=== PATIENT | male | born 1990 | race Caucasian/White ===

== ENCOUNTER 2018-06-10 08:24 | Emergency (ER) | payer OTHER ==
[~2018-06-10] VITALS: Ht 165.1 cm; Wt 108.9 kg
[~2018-06-10 08:24] MED LIST: ACYC400T PO; FAMO20CT PO; MAGN400T7 PO; PRED10TA6 PO; PROG1 PO; TAMS0.4C97 PO; [UNRECOGNIZED DRUG - CODE] PO; [UNRECOGNIZED DRUG - CODE] PO
[2018-06-10 08:30] VITALS: BP 145/81
--- NOTE | 2018-06-10 08:30 | NUR ---
Patient ambulated to bed 11. RN evaluating patient at bedside.
--- NOTE | 2018-06-10 08:48 | NUR ---
PT SEEN BY CLAUDE SEYMOUR.
--- NOTE | 2018-06-10 08:48 | NUR ---
Dr. Mazariegos evaluating patient at bedside.
--- NOTE | 2018-06-10 08:50 | NUR ---
PATIENT PRESENTS TO ED WITH SORE THROAT 10/24 WHEN SWALLOWING, VOMITING, DIARRHEA X1 DAY .SKIN IS PINK/WARM/DRY; AAOX4 WITH EVEN AND STEADY GAIT; LUNGS CLEAR BL; HR EVEN AND REGULAR; PT DENIES ANY FEVER,SOB,COUGH AT THIS TIME; VSS; PATIENT POSITIONED FOR COMFORT; HOB ELEVATED; BEDRAILS UP X1; BED DOWN. ER MD MADE AWARE OF PT STATUS.
[2018-06-10] MEDS ORDERED: DEXAMETHASONE 10 MG/ML VIAL IM ONE (09:00)
[2018-06-10 09:19] VITALS: BP 144/84
--- NOTE | 2018-06-10 09:19 | NUR ---
Patient discharged with v/s stable. Written and verbal after care instructions given and explained. Patient alert, oriented and verbalized understanding of instructions. Ambulatory with steady gait. All questions addressed prior to discharge. ID band removed. Patient advised to follow up with PMD. Rx of ZOFRAN, PENICILLIN given. Patient educated on indication of medication including possible reaction and side effects. Opportunity to ask questions provided and answered.
== END 2018-06-10 09:19 | disposition home or self-care (01) ==
LOC: MED 08:24
DX: J02.9 Acute pharyngitis, unspecified (principal); I10 Essential (primary) hypertension; Z79.899 Other long term (current) drug therapy; Z94.0 Kidney transplant status
CPT/HCPCS: 96372; 99283; J1100

== ENCOUNTER 2023-05-13 21:37 | Emergency (ER) | payer OTHER ==
[~2023-05-13] VITALS: Ht 165.1 cm; Wt 93.9 kg
[~2023-05-13 21:37] MED LIST changes: -ACYC400T PO; +AMLO-3 PO; +CEL250 PO; -FAMO20CT PO; +FURO-570 PO; -MAGN400T7 PO; -PRED10TA6 PO; +PRED5TAB8 PO; -PROG1 PO; -TAMS0.4C97 PO; -[UNRECOGNIZED DRUG - CODE] PO; -[UNRECOGNIZED DRUG - CODE] PO
[2023-05-13 22:32] VITALS: BP 143/71; PULSE 91; RESP 16; TEMP 99.3; O2SAT 97
[2023-05-13 22:54] LABS: FLU A ANTIGEN negative (NEGATIVE); FLU B ANTIGEN NEGATIVE (NEGATIVE)
[2023-05-15] MEDS ORDERED: METR-435 PO (01:18)
== END 2023-05-14 01:27 | disposition left against medical advice (07) ==
LOC: MED 21:37
DX: R50.9 Fever, unspecified (principal); Z20.822 Contact with and (suspected) exposure to COVID-19; Z53.21 Procedure and treatment not carried out due to patient leaving prior to being seen by health care provider
CPT/HCPCS: 99281

== ENCOUNTER 2023-05-14 17:28 | Emergency (ER) | payer OTHER ==
[~2023-05-14] VITALS: Ht 165.1 cm; Wt 93.9 kg
[2023-05-14 17:33] VITALS: BP 126/57; PULSE 84; RESP 18; TEMP 98.5; O2SAT 98
[2023-05-14 19:17] LABS: BASOPHILS % (AUTO) 0.5 % (0.0-2.0); EOSINOPHILS # (AUTO) 0.3 K/uL (0-0.4); EOSINOPHILS % (AUTO) 4.8 % (0.0-4.0); HEMATOCRIT 20.6 % (36-52); LYMPHOCYTES # (AUTO) 0.8 K/uL (2.0-11.5); LYMPHOCYTES % (AUTO) 12.5 % (20.5-51.1); MEAN CORPUSCULAR HEMOGLOBIN 28 pg (27-31); MEAN CORPUSCULAR HGB CONC 34 g/dL (33-37); MEAN CORPUSCULAR VOLUME 84.2 fL (80-94); MONOCYTES # (AUTO) 0.6 K/uL (0.8-1.0); MONOCYTES % (AUTO) 9.8 % (1.7-9.3); NEUTROPHILS # (AUTO) 4.7 K/uL (1.8-7.7); NEUTROPHILS % (AUTO) 72.4 % (42.2-75.2); PLATELET COUNT (AUTO) 135 K/uL (140-450); RED BLOOD CELL COUNT(AUTO) 2.45 MIL/uL (4.20-6.10); RED CELL DISTRIBUTION WIDTH 13.7 % (11.6-13.7); WHITE BLOOD COUNT (AUTO) 6.6 K/uL (4.8-10.8)
[2023-05-14 19:21] LABS: HEMOGLOBIN 6.9 g/dL (12.0-18.0)
[2023-05-14 19:25] LABS: ANION GAP 24.7 (8-16); CALCIUM 9.5 mg/dL (8.5-10.1); CARBON DIOXIDE 19.9 mmol/L (21-32); POTASSIUM 4.6 mmol/L (3.5-5.1)
[2023-05-14 19:30] LABS: BILIRUBIN,DIRECT 0.2 mg/dL (0.0-0.3); TOTAL BILIRUBIN 0.4 mg/dL (0.0-1.0)
[2023-05-14 19:33] LABS: CREATININE 20.3 mg/dL (0.6-1.3)
[2023-05-15] MEDS: metroNIDAZOLE 500 MG/NS PREMIX 100 ML IV ONE (00:04)
[2023-05-15] MEDS ORDERED: METR-435 PO (01:18)
[2023-05-15 01:25] VITALS: BP 114/75; PULSE 75; RESP 18; TEMP 98.5; O2SAT 98
== END 2023-05-15 01:25 | disposition home or self-care (01) ==
LOC: MED 17:28
DX: R50.9 Fever, unspecified (principal); D64.9 Anemia, unspecified; I12.9 Hypertensive chronic kidney disease with stage 1 through stage 4 chronic kidney disease, or unspecified chronic kidney disease; N18.6 End stage renal disease; Z99.2 Dependence on renal dialysis; Z79.899 Other long term (current) drug therapy
CPT/HCPCS: 36415; 36430; 80048; 80076; 83690; 85025; 86886; 86900; 86901; 86920; 87040; 96365; 99285; J3490; P9016

== ENCOUNTER 2023-05-21 12:36 | Emergency (ER) | payer OTHER ==
[~2023-05-21] VITALS: Ht 165.1 cm; Wt 95.3 kg
[~2023-05-21 12:36] MED LIST changes: +METR-435 PO
[2023-05-21 13:01] VITALS: BP 124/86; PULSE 74; RESP 19; TEMP 98.3; O2SAT 100
[2023-05-21 13:47] LABS: BASOPHILS # (AUTO) 0.1 K/uL (0.00-0.22); BASOPHILS % (AUTO) 0.9 % (0.0-2.0); EOSINOPHILS # (AUTO) 0.6 K/uL (0-0.4); EOSINOPHILS % (AUTO) 9.6 % (0.0-4.0); HEMOGLOBIN 8.8 g/dL (12.0-18.0); LYMPHOCYTES # (AUTO) 0.8 K/uL (2.0-11.5); LYMPHOCYTES % (AUTO) 14.1 % (20.5-51.1); MEAN CORPUSCULAR HEMOGLOBIN 28 pg (27-31); MEAN CORPUSCULAR HGB CONC 34 g/dL (33-37); MEAN CORPUSCULAR VOLUME 83.3 fL (80-94); MONOCYTES # (AUTO) 0.7 K/uL (0.8-1.0); MONOCYTES % (AUTO) 11.9 % (1.7-9.3); NEUTROPHILS # (AUTO) 3.7 K/uL (1.8-7.7); NEUTROPHILS % (AUTO) 63.5 % (42.2-75.2); PLATELET COUNT (AUTO) 166 K/uL (140-450); RED BLOOD CELL COUNT(AUTO) 3.13 MIL/uL (4.20-6.10); RED CELL DISTRIBUTION WIDTH 13.6 % (11.6-13.7); WHITE BLOOD COUNT (AUTO) 5.8 K/uL (4.8-10.8)
[2023-05-21 14:14] LABS: ANION GAP 18.4 (8-16); CALCIUM 9.9 mg/dL (8.5-10.1); CARBON DIOXIDE 24.6 mmol/L (21-32)
[2023-05-21 14:19] LABS: CREATININE 19.3 mg/dL (0.6-1.3)
[2023-05-21] MEDS ORDERED: ZOLP5TAB1 PO (14:41)
[2023-05-21 14:58] VITALS: BP 122/78; PULSE 76; RESP 16; TEMP 98.2; O2SAT 99
== END 2023-05-21 14:58 | disposition home or self-care (01) ==
LOC: MED 12:36
DX: R53.83 Other fatigue (principal); G47.00 Insomnia, unspecified; D64.9 Anemia, unspecified; R79.89 Other specified abnormal findings of blood chemistry; E87.1 Hypo-osmolality and hyponatremia; G25.81 Restless legs syndrome; I12.0 Hypertensive chronic kidney disease with stage 5 chronic kidney disease or end stage renal disease; N18.6 End stage renal disease; Z99.2 Dependence on renal dialysis
CPT/HCPCS: 36415; 80048; 85025; 86886; 86900; 86901; 93005; 99284

== ENCOUNTER 2023-06-13 09:27 | Inpatient (IN) | payer OTHER ==
[2023-06-13] VITALS (7 sets, daily range): BP systolic 112–135; BP diastolic 74–88; PULSE 55–83; RESP 16–18; TEMP 97.3–98.8; O2SAT 98–100
[~2023-06-13] VITALS: Ht 165.1 cm; Wt 94.3 kg
[~2023-06-13 09:27] MED LIST changes: +ZOLP5TAB1 PO
[2023-06-13] MEDS ORDERED: GABA-636 PO (10:26)
[2023-06-13] MEDS ORDERED: AMLO10TA88 PO (10:26)
[2023-06-13] MEDS ORDERED: ATEN50TA2 PO (10:26)
[2023-06-13 10:42] LABS: BASOPHILS % (AUTO) 0.7 % (0.0-2.0); EOSINOPHILS # (AUTO) 0.2 K/uL (0-0.4); EOSINOPHILS % (AUTO) 3.6 % (0.0-4.0); HEMATOCRIT 21.1 % (36-52); LYMPHOCYTES # (AUTO) 0.7 K/uL (2.0-11.5); LYMPHOCYTES % (AUTO) 11.5 % (20.5-51.1); MEAN CORPUSCULAR HEMOGLOBIN 28 pg (27-31); MEAN CORPUSCULAR HGB CONC 32 g/dL (33-37); MEAN CORPUSCULAR VOLUME 86.5 fL (80-94); MONOCYTES # (AUTO) 0.8 K/uL (0.8-1.0); MONOCYTES % (AUTO) 12.9 % (1.7-9.3); NEUTROPHILS # (AUTO) 4.6 K/uL (1.8-7.7); NEUTROPHILS % (AUTO) 71.3 % (42.2-75.2); PLATELET COUNT (AUTO) 137 K/uL (140-450); RED BLOOD CELL COUNT(AUTO) 2.44 MIL/uL (4.20-6.10); RED CELL DISTRIBUTION WIDTH 15.5 % (11.6-13.7); WHITE BLOOD COUNT (AUTO) 6.4 K/uL (4.8-10.8)
[2023-06-13 10:58] LABS: ANION GAP 21.3 (8-16); CALCIUM 7.4 mg/dL (8.5-10.1); CARBON DIOXIDE 25.4 mmol/L (21-32); POTASSIUM 5.7 mmol/L (3.5-5.1)
[2023-06-13 11:06] LABS: HEMOGLOBIN 6.8 g/dL (12.0-18.0); INR 1.03 (0.8-1.2); PROTHROMBIN TIME 10.8 secs (10.8-13.4)
[2023-06-13] MEDS: PANTOPRAZOLE 40 MG INJ VIAL IVP ONE (11:28)
[2023-06-13] MEDS: BOWEL EVACUANT DRINK 4,000 ML PDS PO ONE (15:31)
[2023-06-13] MEDS ORDERED: SODIUM PHOSPHATE 118 ML ENEM RC SCH (22:25)
[2023-06-14] VITALS (9 sets, daily range): BP systolic 94–139; BP diastolic 50–82; PULSE 52–91; RESP 16–18; TEMP 97.2–98.6; O2SAT 90–100
[2023-06-14] MEDS: GABAPENTIN 100 MG CAP PO SCH (08:07)
[2023-06-14] MEDS: atenoloL 50 MG TAB PO SCH (08:07)
[2023-06-14] MEDS: amLODIPine 5 MG TAB PO SCH (08:07)
[2023-06-14] MEDS: diphenhydrAMINE 50 MG/ML VIAL ONE (09:28)
[2023-06-14] MEDS: MIDAZOLAM 5 MG/5 ML VIAL ONE (09:29)
[2023-06-14] MEDS: fentaNYL citrate 0.05 MG/ML VIAL ONE (09:29)
[2023-06-14] MEDS: MIDAZOLAM 5 MG/5 ML VIAL IV ONE (10:10)
[2023-06-14] MEDS: fentaNYL citrate 0.05 MG/ML VIAL IVP ONE (10:11)
[2023-06-14 10:14] LABS: ANION GAP 19.9 (8-16); CALCIUM 7.3 mg/dL (8.5-10.1); CARBON DIOXIDE 27.9 mmol/L (21-32); POTASSIUM 4.8 mmol/L (3.5-5.1)
[2023-06-14 10:24] LABS: CREATININE 18.7 mg/dL (0.6-1.3)
[2023-06-14 11:03] LABS: HEMATOCRIT 22.5 % (36-52); HEMOGLOBIN 7.5 g/dL (12.0-18.0)
[2023-06-14] MEDS ORDERED: EPOETIN ALFA 4,000 UNITS/ML VIAL SUBQ SCH (18:15)
[2023-06-14] MEDS ORDERED: METR-520 PO (18:33)
[2023-06-14] MEDS ORDERED: CIPR500T4 PO (18:33)
[2023-06-14] MEDS ORDERED: HYD2.5O TP (18:33)
[2023-06-14] MEDS: EPOETIN ALFA-EPBX 10,000 UNITS/ML VIAL SUBQ ONE (18:37)
[2023-06-14] MEDS ORDERED: MEDS-TO-BEDS MC SCH (21:00)
== END 2023-06-14 18:50 | disposition home or self-care (01) | DRG 254 ==
LOC: MED 09:27 → MTU 17:06
PROVIDERS: ADMIT Hospitalist; ATTEND Hospitalist
PROC: 0DBN8ZX Excision of Sigmoid Colon, Via Natural or Artificial Opening Endoscopic, Diagnostic (ICD-10-PCS; principal; 2023-06-13)
PROC: 30233N1 Transfusion of Nonautologous Red Blood Cells into Peripheral Vein, Percutaneous Approach (ICD-10-PCS; 2023-06-13)
PROC: 3E1M39Z Irrigation of Peritoneal Cavity using Dialysate, Percutaneous Approach (ICD-10-PCS; 2023-06-13)
PROC: 3E1M39Z Irrigation of Peritoneal Cavity using Dialysate, Percutaneous Approach (ICD-10-PCS; 2023-06-14)
DX: K64.4 Residual hemorrhoidal skin tags (principal); D69.6 Thrombocytopenia, unspecified; D62 Acute posthemorrhagic anemia; I12.0 Hypertensive chronic kidney disease with stage 5 chronic kidney disease or end stage renal disease; E87.1 Hypo-osmolality and hyponatremia; E83.51 Hypocalcemia; N18.6 End stage renal disease; K52.9 Noninfective gastroenteritis and colitis, unspecified; E87.5 Hyperkalemia; Z79.899 Other long term (current) drug therapy
CPT/HCPCS: 36415; 36430; 80048; 84484; 85018; 85025; 85610; 85730; 86886; 86900; 86901; 86920; 87081; 88305; 93005; 99291; C9113; J1200; J2250; J3010; P9016; Q5106

== ENCOUNTER 2023-07-14 10:26 | Observation (INO) | payer OTHER ==
[2023-07-14] VITALS (7 sets, daily range): BP systolic 116–137; BP diastolic 49–75; PULSE 100–121; RESP 18–35; TEMP 98.5–99; O2SAT 98–99
[~2023-07-14] VITALS: Ht 165.1 cm; Wt 96.6 kg
[~2023-07-14 10:26] MED LIST changes: +AMLO10TA88 PO; +ATEN50TA2 PO; -CEL250 PO; +CIPR500T4 PO; -FURO-570 PO; +GABA-636 PO; +HYD2.5O TP; -METR-435 PO; +METR-520 PO; -PRED5TAB8 PO; -ZOLP5TAB1 PO
[2023-07-14 11:23] LABS: BASOPHILS % (AUTO) 0.1 % (0.0-2.0); EOSINOPHILS % (AUTO) 0.3 % (0.0-4.0); HEMATOCRIT 21.1 % (36-52); LYMPHOCYTES # (AUTO) 0.6 K/uL (2.0-11.5); MEAN CORPUSCULAR HEMOGLOBIN 29 pg (27-31); MEAN CORPUSCULAR HGB CONC 32 g/dL (33-37); MONOCYTES # (AUTO) 0.8 K/uL (0.8-1.0); MONOCYTES % (AUTO) 8.1 % (1.7-9.3); NEUTROPHILS # (AUTO) 8.9 K/uL (1.8-7.7); NEUTROPHILS % (AUTO) 85.5 % (42.2-75.2); PLATELET COUNT (AUTO) 119 K/uL (140-450); RED BLOOD CELL COUNT(AUTO) 2.37 MIL/uL (4.20-6.10); RED CELL DISTRIBUTION WIDTH 21.7 % (11.6-13.7); WHITE BLOOD COUNT (AUTO) 10.4 K/uL (4.8-10.8)
[2023-07-14 11:33] LABS: ANION GAP 18.9 (8-16); CARBON DIOXIDE 24.9 mmol/L (21-32); POTASSIUM 4.8 mmol/L (3.5-5.1)
[2023-07-14 11:37] LABS: INR 0.96 (0.8-1.2); PARTIAL THROMBOPLASTIN TIME 19.6 secs (22-35.6); PROTHROMBIN TIME 10.1 secs (10.8-13.4)
[2023-07-14 11:42] LABS: ALANINE AMINOTRANSFERASE 30 U/L (12-78); ALBUMIN 2.5 g/dL (3.4-5.0); ALKALINE PHOSPHATASE 253 U/L (50-136); ASPARTATE AMINOTRANSFERASE 17 U/L (15-37); BILIRUBIN,DIRECT 0.2 mg/dL (0.0-0.3); TOTAL BILIRUBIN 0.5 mg/dL (0.0-1.0)
[2023-07-14 12:02] LABS: HEMOGLOBIN 6.8 g/dL (12.0-18.0)
[2023-07-14] MEDS ORDERED: ACETAMINOPHEN 325 MG TAB PO ONE (14:00)
[2023-07-14] MEDS: ACETAMINOPHEN EXTRA STRENGTH 500 MG TAB PO ONE (14:05)
[2023-07-14] MEDS ORDERED: ONDANSETRON 4 MG/2 ML VIAL IVP PRN (14:30)
[2023-07-14] MEDS ORDERED: cefTRIAXone 1,000 MG VIAL ONE (14:49)
[2023-07-14 20:59] LABS: BASOPHILS % (AUTO) 0.2 % (0.0-2.0); EOSINOPHILS % (AUTO) 0.1 % (0.0-4.0); HEMATOCRIT 23.4 % (36-52); HEMOGLOBIN 7.8 g/dL (12.0-18.0); LYMPHOCYTES # (AUTO) 0.7 K/uL (2.0-11.5); LYMPHOCYTES % (AUTO) 8.5 % (20.5-51.1); MEAN CORPUSCULAR HEMOGLOBIN 29 pg (27-31); MEAN CORPUSCULAR HGB CONC 33 g/dL (33-37); MEAN CORPUSCULAR VOLUME 87.2 fL (80-94); MONOCYTES # (AUTO) 1.1 K/uL (0.8-1.0); MONOCYTES % (AUTO) 12.3 % (1.7-9.3); NEUTROPHILS # (AUTO) 6.9 K/uL (1.8-7.7); NEUTROPHILS % (AUTO) 78.9 % (42.2-75.2); PLATELET COUNT (AUTO) 113 K/uL (140-450); RED BLOOD CELL COUNT(AUTO) 2.68 MIL/uL (4.20-6.10); RED CELL DISTRIBUTION WIDTH 20.7 % (11.6-13.7); WHITE BLOOD COUNT (AUTO) 8.7 K/uL (4.8-10.8)
[2023-07-14 21:29] LABS: BILIRUBIN,URINE NEGATIVE (NEGATIVE); BLOOD, URINE NEGATIVE (NEGATIVE); COLOR,URINE YELLOW (YELLOW); LEUKOCYTE ESTERASE ,URINE NEGATIVE (NEGATIVE); NITRITE, URINE NEGATIVE (NEGATIVE); PROTEIN,URINE 2+ (NEGATIVE); UGLUCOSE 1+ (NEGATIVE); UROBILINOGEN,URINE 0.2 EU/dL (0.2 - 1)
[2023-07-14 21:33] LABS: APPEARANCE,URINE SLIGHTLY HAZY (CLEAR)
[2023-07-14] MEDS: ACETAMINOPHEN 325 MG TAB PO PRN (21:36)
[2023-07-14 21:43] LABS: BACTERIA,URINE 0-2 /HPF (None Seen); MUCUS,URINE None Seen /LPF (None Seen); RBC,URINE 0-5 /HPF (0-5); SQUAMOUS EPITHELIAL CELL,UR 0-3 (FEW) /LPF (0-3 (FEW)); WBC,URINE 0 /HPF (0-5)
[2023-07-15 04:00] VITALS: BP 124/67; PULSE 98; RESP 18; TEMP 98.2; O2SAT 98
[2023-07-15 06:38] LABS: BASOPHILS % (AUTO) 0.3 % (0.0-2.0); EOSINOPHILS % (AUTO) 0.6 % (0.0-4.0); HEMATOCRIT 21.1 % (36-52); LYMPHOCYTES # (AUTO) 0.6 K/uL (2.0-11.5); LYMPHOCYTES % (AUTO) 10.1 % (20.5-51.1); MEAN CORPUSCULAR HEMOGLOBIN 28 pg (27-31); MEAN CORPUSCULAR HGB CONC 33 g/dL (33-37); MEAN CORPUSCULAR VOLUME 85.6 fL (80-94); MONOCYTES # (AUTO) 0.8 K/uL (0.8-1.0); MONOCYTES % (AUTO) 12.8 % (1.7-9.3); NEUTROPHILS # (AUTO) 4.6 K/uL (1.8-7.7); NEUTROPHILS % (AUTO) 76.2 % (42.2-75.2); PLATELET COUNT (AUTO) 100 K/uL (140-450); RED BLOOD CELL COUNT(AUTO) 2.46 MIL/uL (4.20-6.10); RED CELL DISTRIBUTION WIDTH 20.4 % (11.6-13.7); WHITE BLOOD COUNT (AUTO) 6.1 K/uL (4.8-10.8)
[2023-07-15] MEDS: MORPHINE SULFATE 2 MG/ML SYR IVP PRN (07:36)
[2023-07-15 07:58] LABS: ALBUMIN 2.1 g/dL (3.4-5.0); ANION GAP 23.8 (8-16); CARBON DIOXIDE 21.1 mmol/L (21-32); MAGNESIUM 1.9 mg/dL (1.8-2.4); POTASSIUM 5.9 mmol/L (3.5-5.1); TOTAL BILIRUBIN 0.6 mg/dL (0.0-1.0); TOTAL PROTEIN, SERUM 6.1 g/dL (6.4-8.2)
[2023-07-15 08:00] VITALS: BP 124/59; PULSE 97; RESP 18; TEMP 99; O2SAT 99
[2023-07-15 08:05] LABS: CREATININE 18.6 mg/dL (0.6-1.3)
[2023-07-15] MEDS: SODIUM ZIRCONIUM CYCLOSILICATE 10 GM POWD.PACK PO SCH (12:31)
[2023-07-15] MEDS ORDERED: CEPH-588 PO (16:30)
[2023-07-15] MEDS ORDERED: PANT40EC PO (16:30)
[2023-07-15 17:36] VITALS: BP 130/78; PULSE 97; RESP 18; TEMP 99.7
[2023-07-15] MEDS ORDERED: MEDS-TO-BEDS MC SCH (21:00)
== END 2023-07-15 18:59 | disposition home or self-care (01) ==
LOC: MED 10:26 → MTU 14:29
PROVIDERS: ADMIT Hospitalist; ATTEND Hospitalist
DX: I12.0 Hypertensive chronic kidney disease with stage 5 chronic kidney disease or end stage renal disease (principal); N18.6 End stage renal disease; D63.8 Anemia in other chronic diseases classified elsewhere; R50.9 Fever, unspecified; K62.5 Hemorrhage of anus and rectum; K52.9 Noninfective gastroenteritis and colitis, unspecified; D69.6 Thrombocytopenia, unspecified; G62.9 Polyneuropathy, unspecified; Z94.0 Kidney transplant status; Z99.2 Dependence on renal dialysis
CPT/HCPCS: 36415; 36430; 71045; 74176; 80048; 80053; 80076; 81001; 83605; 83735; 84484; 85025; 85610; 85730; 86886; 86900; 86901; 86920; 87040; 87081; 93005; 96365; 96366; 96375; 99285; G0378; J0696; J2270; J7060; P9016

== ENCOUNTER 2023-09-26 16:47 | Emergency (ER) | payer OTHER ==
[~2023-09-26] VITALS: Ht 165.1 cm; Wt 102.1 kg
[~2023-09-26 16:47] MED LIST changes: +CEPH-588 PO; -CIPR500T4 PO; -METR-520 PO; +PANT40EC PO
[2023-09-26 17:03] VITALS: BP 136/51; PULSE 87; RESP 18; TEMP 98.7; O2SAT 98
[2023-09-26 18:29] LABS: BASOPHILS % (AUTO) 0.2 % (0.0-2.0); EOSINOPHILS % (AUTO) 0.2 % (0.0-4.0); HEMATOCRIT 22.3 % (36-52); HEMOGLOBIN 7.4 g/dL (12.0-18.0); LYMPHOCYTES # (AUTO) 0.8 K/uL (2.0-11.5); LYMPHOCYTES % (AUTO) 7.3 % (20.5-51.1); MEAN CORPUSCULAR HEMOGLOBIN 29 pg (27-31); MEAN CORPUSCULAR HGB CONC 33 g/dL (33-37); MEAN CORPUSCULAR VOLUME 86.9 fL (80-94); MONOCYTES # (AUTO) 1.2 K/uL (0.8-1.0); MONOCYTES % (AUTO) 11.3 % (1.7-9.3); NEUTROPHILS # (AUTO) 8.4 K/uL (1.8-7.7); PLATELET COUNT (AUTO) 217 K/uL (140-450); RED BLOOD CELL COUNT(AUTO) 2.57 MIL/uL (4.20-6.10); RED CELL DISTRIBUTION WIDTH 17.8 % (11.6-13.7); WHITE BLOOD COUNT (AUTO) 10.4 K/uL (4.8-10.8)
[2023-09-26 18:40] LABS: ANION GAP 23.8 (8-16); CALCIUM 8.2 mg/dL (8.5-10.1); CARBON DIOXIDE 21.2 mmol/L (21-32)
[2023-09-26 18:42] LABS: CREATININE 18.5 mg/dL (0.6-1.3)
[2023-09-26 22:30] VITALS: BP 113/58; PULSE 89; RESP 14; TEMP 97.6; O2SAT 98
== END 2023-09-26 23:39 | disposition home or self-care (01) ==
LOC: MED 16:47
DX: D64.9 Anemia, unspecified (principal); I12.0 Hypertensive chronic kidney disease with stage 5 chronic kidney disease or end stage renal disease; N18.6 End stage renal disease; Z99.2 Dependence on renal dialysis; Z79.2 Long term (current) use of antibiotics; Z79.899 Other long term (current) drug therapy
CPT/HCPCS: 36415; 36430; 80048; 85025; 86886; 86900; 86901; 86920; 99285; P9016

== ENCOUNTER 2023-10-25 10:51 | Emergency (ER) | payer OTHER ==
[~2023-10-25] VITALS: Ht 165.1 cm; Wt 102.1 kg
[2023-10-25 11:03] VITALS: BP 113/65; PULSE 80; RESP 18; TEMP 98; O2SAT 99
[2023-10-25 11:40] LABS: BASOPHILS % (AUTO) 0.4 % (0.0-2.0); EOSINOPHILS # (AUTO) 0.1 K/uL (0-0.4); EOSINOPHILS % (AUTO) 0.8 % (0.0-4.0); HEMATOCRIT 25.4 % (36-52); LYMPHOCYTES # (AUTO) 1.3 K/uL (2.0-11.5); LYMPHOCYTES % (AUTO) 12.8 % (20.5-51.1); MEAN CORPUSCULAR HEMOGLOBIN 28 pg (27-31); MEAN CORPUSCULAR HGB CONC 32 g/dL (33-37); MEAN CORPUSCULAR VOLUME 87.4 fL (80-94); MONOCYTES # (AUTO) 0.5 K/uL (0.8-1.0); MONOCYTES % (AUTO) 5.5 % (1.7-9.3); NEUTROPHILS # (AUTO) 7.9 K/uL (1.8-7.7); NEUTROPHILS % (AUTO) 80.5 % (42.2-75.2); PLATELET COUNT (AUTO) 189 K/uL (140-450); RED BLOOD CELL COUNT(AUTO) 2.91 MIL/uL (4.20-6.10); RED CELL DISTRIBUTION WIDTH 17.5 % (11.6-13.7); WHITE BLOOD COUNT (AUTO) 9.8 K/uL (4.8-10.8)
[2023-10-25] MEDS: LORazepam 0.5 MG TAB PO ONE (11:48)
[2023-10-25 11:50] LABS: ANION GAP 20.8 (8-16); CALCIUM 7.4 mg/dL (8.5-10.1); POTASSIUM 4.8 mmol/L (3.5-5.1)
[2023-10-25 11:52] LABS: CREATININE 14.7 mg/dL (0.6-1.3)
[2023-10-25 11:54] LABS: INR 0.97 (0.8-1.2); PROTHROMBIN TIME 10.2 secs (10.8-13.4)
[2023-10-25 12:02] VITALS: BP 109/51; PULSE 80; RESP 22; O2SAT 99
== END 2023-10-25 12:24 | disposition home or self-care (01) ==
LOC: MED 10:51
DX: I12.0 Hypertensive chronic kidney disease with stage 5 chronic kidney disease or end stage renal disease (principal); N18.6 End stage renal disease; D63.1 Anemia in chronic kidney disease; Z99.2 Dependence on renal dialysis; Z79.899 Other long term (current) drug therapy
CPT/HCPCS: 36415; 80048; 85025; 85610; 86886; 86900; 86901; 99283